=== PATIENT | male | born 1975 | race Caucasian/White ===

== ENCOUNTER 2016-12-23 23:30 | Emergency (ER) | payer OTHER ==
[~2016-12-23] VITALS: Ht 172.7 cm; Wt 80.0 kg
[2016-12-23 23:32] VITALS: Ht 172.7 cm; Wt 80.0 kg
[2016-12-24] MEDS ORDERED: KETOROLAC 60 MG INJ IM STA (01:16)
--- NOTE | 2016-12-24 01:58 | RADRPT ---
PROCEDURE: Thoracic Spine. CLINICAL INDICATION: Pain TECHNIQUE: Three views of the thoracic spine are available for review. COMPARISON: None available FINDINGS: No fracture is identified. There is maintenance of height of the vertebral bodies. Alignment is m aintained. There is no spondylolisthesis. Bone mineralization is within normal limits. Soft tissu es are unremarkable. IMPRESSION: 1. No acute abnormality. RPTAT: HMVK .Jamison Henry MD, MD Date Time Electronically viewed and signed by .Jamison Henry MD, on 12/24/2016 01:58 .K/
--- NOTE | 2016-12-24 02:35 | ERD ---
ER Documentation Chief Complaint Date/Time DATE: 12/24/16 Chief Complaint Back pain HPI The patient is a 41-year-old male who presents to the emergency department with complaint of back pain. The patient reports that his pain initially began approximately one month ago, with onset of left-sided thoracic back pain. The pain is worsened after excessive activity, and is improved at rest and when lying supine. He denies any recent falls, injury or trauma to the back. Denies bowel or bladder disturbances, urinary retention or extremity numbness, paresthesias or weakness. Denies neck pain or neck stiffness. Denies fevers, sweats, chills, nausea or vomiting. Denies any restricted range of motion of the back. Denies any new rashes or lesions to the back. Denies chest pain, palpitations, shortness of breath. Denies recent travel, lower extremity edema, calf swelling or calf tenderness. Denies history of immunocompromised state or IV drug use. He rates his current pain as 2/10, but has not yet taken any medication for pain relief. Denies any other complaints at this time. ROS All systems reviewed and are negative except as per history of present illness. Medications Home Meds Active Scripts Ibuprofen* (Motrin*) 600 Mg Tab, 600 MG PO Q6, #30 TAB Prov:JAK LINDQUIST PA-C 12/24/16 Allergies Allergies: Coded Allergies: No Known Allergy (Unverified , 12/23/16) PMhx/Soc Medical and Surgical Hx: pt denies Medical Hx, pt denies Surgical Hx Hx Alcohol Use: No Hx Substance Use: No Hx Tobacco Use: No Smoking Status: Never smoker Physical Exam Vitals Vital Signs Date Time Temp Pulse Resp B/P Pulse Ox O2 Delivery O2 Flow Rate FiO2 12/24/16 03:04 98.3 76 20 112/77 99 Room Air 12/23/16 23:32 98.3 65 18 126/74 97 Physical Exam GENERAL: Well-developed, well-nourished, in no acute distress HEENT: Head is normocephalic, atraumatic. No scleral pallor or icterus. Pupils equal, round and reactive to light. Extraocular movements intact. Conjunctiva pink. Moist mucous membranes. NECK: Supple. No masses, no tenderness, no lymphadenopathy. Full range of motion. RESPIRATORY: Lungs are clear to auscultation bilaterally. No rales, rhonchi or wheezing. Equal breath sounds. Normal expiratory effort. Symmetric expansion. CARDIOVASCULAR: Regular rate and rhythm. S1 and S2 normal. No murmurs, rubs, or gallops. No chest wall tenderness. No crepitus. GASTROINTESTINAL: Abdomen is soft, nontender, and nondistended. Positive bowel sounds. No pulsatile abdominal masses. FLANK: No CVA tenderness, no mass or swelling. BACK: No midline tenderness. Left-sided paraspinal muscle tenderness. Spine curve normal. No deformities. No step offs. Negative straight leg raise bilaterally. No foot drop. No crepitus. No saddle-region anesthesia. EXTREMITIES: No clubbing, cyanosis, or edema. Normal skin perfusion. Moving all extremities. Muscle tone is normal. No focal swelling or erythema. Distal pulses are palpable, 2+ bilaterally. Capillary refill is less than 2 seconds. 5/ 5 strength upper and lower extremities bilaterally. NEUROLOGIC: The patient is alert, awake, and oriented x 3. No focal neurologic deficits. Cranial nerves are grossly intact. Gait is observed and normal. There is no ataxia. Motor and sensation grossly intact. INTEGUMENT: Skin is clean, dry and intact. No rashes, lesions or petechiae present. Normal turgor. PSYCHIATRIC: Appropriate; Cooperative. Results 24 hrs Current Medications Medications (Trade) Dose Ordered Sig/Maicol Route PRN Reason Start Time Stop Time Status Last Admin Dose Admin Ketorolac Tromethamine (Toradol) 60 mg ONCE STAT IM 12/24/16 01:16 12/24/16 01:17 DC 12/24/16 02:29 Procedures/MDM DIAGNOSTIC TESTS AND INTERPRETATION: PROCEDURE: Thoracic Spine. CLINICAL INDICATION: Pain TECHNIQUE: Three views of the thoracic spine are available for review. COMPARISON: None available FINDINGS:No fracture is identified. There is maintenance of height of the vertebral bodies. Alignment is maintained. There is no spondylolisthesis. Bone mineralization is within normal limits. Soft tissues are unremarkable. IMPRESSION: No acute abnormality. .Jamison Henry MD, Date Time Electronically viewed and signed by .Jamison Henry MD, on 12/24/2016 01:58 MEDICAL DECISION MAKING: This is a 41-year-old male presenting to the Emergency Department with complaint of left thoracic back pain x 1 month. On physical examination the patient had tenderness to palpation noted over the left paraspinal muscles of the thoracic back. He had negative straight leg raises, with no saddle-region anesthesia noted. Vital signs were appropriate. He exhibited no altered mental status, neurologic deficits, saddle anesthesia, bowel or bladder disturbances, incontinence, urinary retention, or lower extremity motor or sensory deficits. The differential diagnosis includes, but is not limited to, cauda equina syndrome, epidural abscess, epidural hematoma, osteomyelitis, vertebral fracture , lumbosacral strain, herniated disc, spinal stenosis, nephrolithiasis, osteoarthritis, sciatica, spondylolisthesis, bursitis, fracture, pyelonephritis , thoracic outlet syndrome, pneumothorax, hemothorax, thoracic/abdominal aortic aneurysm, aortic dissection, herpes zoster, radiculopathy, myelopathy, neoplastic disease. No acute abnormalities were noted on x-ray imaging. After rest and administration of Toradol, the patient reports no new complaints, and decreased pain. Upon my review and interpretation of the patient's presentation, clinical data, and overall ER course, I believe the patient's symptoms are most consistent with back pain, uncertain etiology. I suspect symptoms are musculoskeletal in origin. I doubt cord compression or cauda equina syndrome, as patient is with equal, strong motor in bilateral lower extremities, no bowel/bladder disturbances, incontinence or retention, no saddle-anesthesia. Doubt vertebral fracture, no midline bony tenderness, no history of significant recent trauma. Doubt neoplastic disease, metastases unlikely given no night sweats, systemic symptoms, no risk factors. Doubt epidural abscess, patient is afebrile, with no history of IV drug use and is immunocompetent. Renal/aortic pathology not consistent with patient history or physical examination, no pulsatile abdominal masses, equal pulses bilaterally. Doubt pyelonephritis, no systemic symptoms, no flank pain, no CVA tenderness. Doubt zoster, no vesicular lesions noted. Doubt pneumothorax, patient has equal breath sounds, normal O2 saturation on room air. At this time, the patient is in stable condition and therefore can be discharged home with a prescription for Ibuprofen and strict return precautions for signs of deteriorating or worsening condition. The patient is advised to follow up with his primary care provider within 2-3 days for reevaluation and further management, or return to the ER sooner for any new or worsening symptoms. I shared my medical decision making and plan with the patient at length and in great detail, and the patient verbally understands and agrees with the plan for further observation and care as an outpatient. At the time of discharge, all questions were answered. Departure Diagnosis: Primary Impression: Left-sided thoracic back pain Chronicity: acute Qualified Code: M54.6 - Acute left-sided thoracic back pain Condition: Stable Patient Instructions: Back Pain (Acute Or Chronic), Relieving Back Pain, Thoracic Strain Additional Instructions: Llame al doctor MAANA y paty henrry EVERT PARA DENTRO DE 2-3 CHILEL.Dgale a la secretaria que nosotros le instruimos hacer esta evert.Avise o llame si delgado condicin se empeora antes de la evert. Regresa aqui si peor o no mejor. JAK LINDQUIST PA-C Dec 24, 2016 02:35
[2016-12-24] MEDS ORDERED: NAPR-260 PO (02:36)
[2016-12-24] MEDS ORDERED: IBUP-1542 PO (02:36)
[2016-12-24 03:04] VITALS: BP 112/77; PULSE 76; RESP 20; TEMP 98.3
== END 2016-12-24 03:04 | disposition home or self-care (01) ==
LOC: FTE 23:30
DX: M54.6 Pain in thoracic spine (principal)
CPT/HCPCS: 72072; 96372; J1885; Z7502

== ENCOUNTER 2016-12-27 21:15 | Emergency (ER) | payer OTHER ==
[~2016-12-27] VITALS: Ht 170.2 cm; Wt 78.0 kg
[~2016-12-27 21:15] MED LIST: IBUP-1542 PO; NAPR-260 PO
[2016-12-27 21:20] VITALS: Ht 170.2 cm; Wt 78.0 kg
[2016-12-27] MEDS ORDERED: ONDANSETRON (ODT) 4 MG TAB ODT STA (21:53)
[2016-12-27] MEDS ORDERED: ACETAMINOPHEN 325 MG TAB PO ONE (22:00)
[2016-12-27] MEDS ORDERED: ACET500C5 PO (22:21)
[2016-12-27] MEDS ORDERED: ONDA4TAB14 PO (22:21)
--- NOTE | 2016-12-27 22:43 | ERD ---
ER Documentation Chief Complaint Date/Time DATE: 12/27/16 TIME: 22:40 Chief Complaint VENTURA/VOMITING X2 DAYS. STATED BEING TREATED FOR SHINGLES HPI 41-year-old male comes in with history of headache, nausea vomiting over the last 2 days and is currently being treated for shingles. He reports that he had some back pain in the thoracic region that started about 4 days ago and developed a rash that same evening after being seen, he was seen by his primary care doctor today for the symptoms as well as the rash that presented on Sunday which was 2 days ago and was started on [place] as well as acyclovir. He is to take acyclovir which is 100 mg 5 times a day and was also prescribed [place]. He reports a frontal headache that is throbbing, worse when he leans forward, is nonradiating. He denies any photophobia, denies that this is a worse headache of his life, denies any neck stiffness. The rashes on the left side of the chest that is consistent with shingles, it is burning, and radiates and continues to his back. ROS All systems reviewed and are negative except as per history of present illness. Medications Home Meds Active Scripts Ondansetron (Ondansetron Odt) 4 Mg Tab.rapdis, 4 MG PO Q6H Y for NAUSEA AND/OR VOMITING, #10 TAB Prov:BASIA LAMAS PA-C 12/27/16 Acetaminophen* (Tylophen*) 500 Mg Capsule, 1 CAP PO Q6H Y for PAIN AND OR ELEVATED TEMP, #20 CAP Prov:BASIA LAMAS PA-C 12/27/16 Ibuprofen* (Motrin*) 600 Mg Tab, 600 MG PO Q6, #30 TAB Prov:JAK LINDQUIST PA-C 12/24/16 Allergies Allergies: Coded Allergies: No Known Allergy (Unverified , 12/27/16) PMhx/Soc Medical and Surgical Hx: pt denies Surgical Hx Hx Miscellaneous Medical Probl: Yes (shingles; on treatment. ) Hx Alcohol Use: No Hx Substance Use: No Hx Tobacco Use: No Smoking Status: Never smoker Physical Exam Vitals Vital Signs Date Time Temp Pulse Resp B/P Pulse Ox O2 Delivery O2 Flow Rate FiO2 12/27/16 21:20 99.6 90 18 118/64 97 Physical Exam General: Well-developed, well-nourished. The patient appears in no acute distress. Nontoxic appearing. HEENT: Head is normocephalic, atraumatic. No scleral icterus. Neck: Supple. Nontender. No meningismus Lungs: Clear to auscultation. Normal air movement. Heart: Regular rate and rhythm. S1 and S2 are normal. No murmurs, gallops, or rubs. Abdomen: Soft, nontender, nondistended. Bowel sounds are normoactive Back: Atraumatic Extremities: No clubbing or cyanosis. Normal pulses. Moving extremities x 4. No weakness. Neurologic: Alert and oriented 3. No focal deficits. Speech and gait normal. Skin: Unilateral vesicular rash along the T5 dermatome, it is on the left side just below the nipple goes to his back as well. Results 24 hrs Current Medications Medications (Trade) Dose Ordered Sig/Maicol Route PRN Reason Start Time Stop Time Status Last Admin Dose Admin Acetaminophen (Tylenol Tab) 650 mg ONCE ONCE PO 12/27/16 22:00 12/27/16 22:01 DC 12/27/16 22:31 Ondansetron HCl (Zofran Odt) 4 mg ONCE STAT ODT 12/27/16 21:53 12/27/16 21:54 DC 12/27/16 22:31 Procedures/MDM ED course: He was given Tylenol as well as Zofran for his symptoms. He was reassessed after receiving Tylenol and Zofran and states that he is feeling much better at this time. Medical decision makin-year-old male presents with shingles, patient presents with symptoms of headache and nausea vomiting as well. Differential diagnosis of meningitis versus encephalitis source sepsis was also considered given his presentation of the fever, headache and nausea vomiting however the patient does not have any meningismus, he is nontoxic appearing. His headache does sound to be more migraine versus tension-like as it is frontal, throbbing and worse leaning forward. No photophobia noted, and he is nontoxic appearing. This was discussed with my attending physician, Dr. Villegas agrees that the patient does not warrant any further imaging or workup or hospitalization. He is currently taking acyclovir p.o. and is appropriate to be continued. Departure Diagnosis: Primary Impression: Shingles Additional Impression: Headache Condition: Good Patient Instructions: Shingles (Herpes Zoster) Additional Instructions: Llame al doctor MAANA y paty henrry EVERT PARA DENTRO DE 1-2 CHILEL.Dgale a la secretaria que nosotros le instruimos hacer esta evert.Avise o llame si delgado condicin se empeora antes de la evert. Regresa aqui si peor o no mejor. BASIA LAMAS PA-C Dec 27, 2016 22:43
== END 2016-12-27 23:04 | disposition home or self-care (01) ==
LOC: FTE 21:15
DX: B02.9 Zoster without complications (principal); R11.2 Nausea with vomiting, unspecified
CPT/HCPCS: Z7502; Z7610; 99283

== ENCOUNTER 2018-02-12 21:56 | Emergency (ER) | END 2018-02-12 23:58 | disposition home or self-care (01) ==

== ENCOUNTER 2018-04-07 17:48 | Emergency (ER) | END 2018-04-07 19:02 | disposition home or self-care (01) ==

== ENCOUNTER 2018-07-05 14:11 | Emergency (ER) | payer OTHER ==
[~2018-07-05] VITALS: Wt 77.6 kg
[~2018-07-05 14:11] MED LIST changes: +ACET500C5 PO; +CYCL10TA7 PO; -NAPR-260 PO; +NAPR-985 PO; +ONDA4TAB14 PO; +PHEN177S43 MT; +TRAM50TA2 PO
[2018-07-05 14:14] VITALS: BP 137/62; PULSE 75; RESP 20
[2018-07-05] MEDS ORDERED: ACYC200C2 PO (18:33)
--- NOTE | 2018-07-05 19:21 | ERD ---
ER Documentation Chief Complaint Chief Complaint LEFT HAND THUMB WART [id number] HPI 42-year-old male patient with no significant past medical history presents to ED complaining of left thumb rash that started about 5 months ago. Patient describes it as a burning sensation and painful. Denies any fever, chills, naus ea, vomiting, diarrhea, neck stiffness. Patient reports that he is sexually active, with his , 1 partner. Patient reports that he tried to also remove the vesicles with a nail clipper. Patient reports that he also has formed, new sores on to his middle finger of the left hand. ROS All systems reviewed and are negative except as per history of present illness. Medications Home Meds Active Scripts Acyclovir* (Acyclovir*) 200 Mg Capsule, 200 MG PO QID, #7 CAP Prov:ARTURO REYES PA-C 07/05/18 Tramadol HCl (Tramadol HCl) 50 Mg Tablet, 50 MG PO Q4 PRN for PAIN, #20 TAB Prov:HMIA KEEN MD 04/07/18 Cyclobenzaprine Hcl* (Cyclobenzaprine Hcl*) 10 Mg Tablet, 10 MG PO TID, #15 TAB Prov:GREGORIO IYER PA-C 02/12/18 Naproxen* (Naprosyn*) 500 Mg Tablet, 500 MG PO BID PRN for PAIN AND/OR INFLAMMATION, #30 TAB Prov:GREGORIO IYER PA-C 02/12/18 Phenol* (Chloraseptic* [place]) 177 Ml [place].pump, 2 SPRAY MT Q2H PRN for SORE THROAT, #1 BOTTLE Prov:GREGORIO IYER PA-C 02/12/18 Ondansetron (Ondansetron Odt) 4 Mg Tab.rapdis, 4 MG PO Q6H PRN for NAUSEA AND/OR VOMITING, #10 TAB Prov:BASIA LAMAS PA-C 12/27/16 Acetaminophen* (Tylophen*) 500 Mg Capsule, 1 CAP PO Q6H PRN for PAIN AND OR ELEVATED TEMP, #20 CAP Prov:BASIA LAMAS PA-C 12/27/16 Ibuprofen* (Motrin*) 600 Mg Tab, 600 MG PO Q6, #30 TAB Prov:JAK LINDQUIST PA-C 12/24/16 Allergies Allergies: Coded Allergies: No Known Allergy (Unverified , 12/27/16) PMhx/Soc Medical and Surgical Hx: pt denies Medical Hx, pt denies Surgical Hx Hx Miscellaneous Medical Probl: Yes (shingles; on treatment. ) Hx Alcohol Use: No Hx Substance Use: No Hx Tobacco Use: No Smoking Status: Never smoker FmHx Family History: No diabetes, No coronary disease Physical Exam Vitals Vital Signs Date Temp Pulse Resp B/P (MAP) Pulse Ox O2 O2 Flow FiO2 Time Delivery Rate 07/05/18 98.4 75 20 137/62 98 14:14 (87) Physical Exam Const: [id number], well-nourished. In no acute distress. Head: Atraumatic, normocephalic Eyes: Normal Conjunctiva without injection ENT: Normal external ear, nose and mouth. Neck: Full range of motion. No meningismus. Resp: Clear to auscultation bilaterally. No wheezing, rhonchi, rales, or crackles. No accessory muscle use. No retractions. Cardio: Regular rate and rhythm, no murmurs Skin: No petechiae or rashes Back: No midline tenderness. No CVA tenderness. Ext: No cyanosis, or edema. Cap refill less than 2 seconds. Distal pulses intact bilaterally. Grouped vesicles noted of patient's volar aspect of patient's left thumb. No erythema, edema. No purulent discharge. No fluctuance or induration. Neur: Awake and alert. Normal gait and coordination. Muscle strength 5/5. Sensation intact bilaterally. Psych: Normal Mood and Affect Procedures/MDM 42-year-old male patient with no significant past medical history presents to ED complaining of left hand with vesicles. Patient is afebrile and nontoxic- appearing. Patient is differentials are herpetic bruce. Low suspicion for anaphylaxis, scabies, SJS/TEN, TSS, Lyme's Disease, syphilis, RMSF, shingles, disseminated gonorrhea, chlamydia, DIC, TTP, ITP, erythema multiforme, sepsis, cellulitis, necrotizing fasciitis, gangrene, meningococcemia, allergic contact dermatitis, urticaria, eczema, tinea infection, or other emergent conditions. Discussed this case with supervising physician, Dr. Samuels, who agreed with the management and discharge plan. No sex cleared by PCP. Diagnosis: Herpetic bruce Discharge medications: Acyclovir Follow up with primary care physician in 1-2 days. Instructed patient to return to the ED sooner for any worsening symptoms. Should also keep the vesicles covered till resolved due to risk of transmission. Patient should not rub his eyes. Patient's questions were answered. Patient is hemodynamically stable. Patient understood and agreed with discharge plan. Patient discharged stable. Disclaimer: Inadvertent spelling and grammatical errors are likely due to EHR/dictation software use and do not reflect on the overall quality of patient care. Also, please note that the electronic time recorded on this note does not necessarily reflect the actual time of the patient encounter. Departure Diagnosis: Primary Impression: Herpetic bruce Condition: Stable Patient Instructions: Herpes: Caring for Sores Referrals: [facility] YOU HAVE RECEIVED A MEDICAL SCREENING EXAM AND THE RESULTS INDICATE THAT YOU DO NOT HAVE A CONDITION THAT REQUIRES URGENT TREATMENT IN THE EMERGENCY DEPARTMENT. FURTHER EVALUATION AND TREATMENT OF YOUR CONDITION CAN WAIT UNTIL YOU ARE SEEN IN YOUR DOCTORS OFFICE WITHIN THE NEXT 1-2 DAYS. IT IS YOUR RESPONSIBILITY TO MAKE AN APPOINTMENT FOR FOLOW-UP CARE. IF YOU HAVE A PRIMARY DOCTOR --you should call your primary doctor and schedule an appointment IF YOU DO NOT HAVE A PRIMARY DOCTOR YOU CAN CALL OUR PHYSICIAN REFERRAL HOTLINE AT IF YOU CAN NOT AFFORD TO SEE A PHYSICIAN YOU CAN CHOSE FROM THE FOLLOWING [facility] [address] [facility]. [facility] [address] [facility]. [facility] [address] [facility] [facility] [address] [facility]. [facility] [address] [facility]. [facility]. [address] [facility]. [facility] YOU HAVE RECEIVED A MEDICAL SCREENING EXAM AND THE RESULTS INDICATE THAT YOU DO NOT HAVE A CONDITION THAT REQUIRES URGENT TREATMENT IN THE EMERGENCY DEPARTMENT. FURTHER EVALUATION AND TREATMENT OF YOUR CONDITION CAN WAIT UNTIL YOU ARE SEEN IN YOUR DOCTORS OFFICE WITHIN THE NEXT 1-2 DAYS. IT IS YOUR RESPONSIBILITY TO MAKE AN APPOINTMENT FOR FOLOW-UP CARE. IF YOU HAVE A PRIMARY DOCTOR --you should call your primary doctor and schedule and appointment IF YOU DO NOT HAVE A PRIMARY DOCTOR YOU CAN CALL OUR PHYSICIAN REFERRAL HOTLINE AT . IF YOU CAN NOT AFFORD TO SEE A PHYSICIAN YOU CAN CHOSE FROM THE FOLLOWING [facility] INSTITUTIONS: [facility] [address] [place] [address] [facility] [address] [place], [place] [id number] [place] [address] [address] [place] [address] [facility] URGENT CARE/SPECIALTIES Additional Instructions: Llame al doctor MAANA y paty henrry EVERT PARA DENTRO DE 2-3 CHILEL.Dgale a la secretaria que nosotros le instruimos hacer esta evert.Avise o llame si gutiérrez condicin se empeora antes de la evert. Regresa aqui si peor o no mejor. WOUND CHECK:CONSULTE A GUTIÉRREZ MDICO EN 2 rivero para carlos GUTIÉRREZ HERIDA. ARTURO REYES PA-C Jul 05, 2018 19:21
== END 2018-07-05 18:57 | disposition home or self-care (01) ==
LOC: FTE 14:11
DX: B00.89 Other herpesviral infection (principal)
CPT/HCPCS: 99283

== ENCOUNTER 2018-08-09 15:45 | Emergency (ER) | payer OTHER ==
[~2018-08-09] VITALS: Ht 170.2 cm; Wt 76.7 kg
[~2018-08-09 15:45] MED LIST changes: +ACYC200C2 PO
[2018-08-09 16:02] VITALS: BP 117/57; PULSE 65; RESP 17; Ht 170.2 cm; Wt 76.7 kg
[2018-08-09] MEDS ORDERED: KETOROLAC 30 MG INJ IM STA (18:30)
[2018-08-09] MEDS ORDERED: SULF1TAB31 PO (19:20)
[2018-08-09] MEDS ORDERED: IBUP-1542 PO (19:20)
[2018-08-09] MEDS ORDERED: ACET-141 PO (19:20)
[2018-08-09] MEDS ORDERED: CEPH500C PO (19:20)
--- NOTE | 2018-08-09 19:22 | ERD ---
ER Documentation Chief Complaint Chief Complaint L thumb worsening pain; No new injury/ trauma ROS All systems reviewed and are negative except as per history of present illness. Medications Home Meds Active Scripts Cephalexin* (Cephalexin*) 500 Mg Capsule, 500 MG PO Q8 for skin infection for 5 Days, #15 CAP Prov:HOLLY ROSE DO 08/09/18 Sulfamethoxazole/Trimethoprim* (Bactrim Ds* Tablet) 1 Each Tablet, 1 TAB PO BID for skin infection for 5 Days, #10 TAB Prov:HOLLY ROSE DO 08/09/18 Acetaminophen* (Acetaminophen*) 500 MG Extra Strength Tablet, 500 MG PO Q4H PRN for PAIN AND OR ELEVATED TEMP, #30 TAB Prov:HOLLY ROSE DO 08/09/18 Ibuprofen* (Motrin*) 600 Mg Tab, 600 MG PO Q6H PRN for PAIN AND OR ELEVATED TEMP, #30 TAB Prov:HOLLY ROSE DO 08/09/18 Acyclovir* (Acyclovir*) 200 Mg Capsule, 200 MG PO QID, #7 CAP Prov:ARTURO REYES PA-C 07/05/18 Tramadol HCl (Tramadol HCl) 50 Mg Tablet, 50 MG PO Q4 PRN for PAIN, #20 TAB Prov:HIMA KEEN MD 04/07/18 Cyclobenzaprine Hcl* (Cyclobenzaprine Hcl*) 10 Mg Tablet, 10 MG PO TID, #15 TAB Prov:GREGORIO IYER PA-C 02/12/18 Naproxen* (Naprosyn*) 500 Mg Tablet, 500 MG PO BID PRN for PAIN AND/OR INFLAMMATION, #30 TAB Prov:GREGORIO IYER PA-C 02/12/18 Phenol* (Chloraseptic* [place]) 177 Ml [place].pump, 2 SPRAY MT Q2H PRN for SORE THROAT, #1 BOTTLE Prov:GREGORIO IYER PA-C 02/12/18 Ondansetron (Ondansetron Odt) 4 Mg Tab.rapdis, 4 MG PO Q6H PRN for NAUSEA AND/OR VOMITING, #10 TAB Prov:BASIA LAMAS PA-C 12/27/16 Acetaminophen* (Tylophen*) 500 Mg Capsule, 1 CAP PO Q6H PRN for PAIN AND OR ELEVATED TEMP, #20 CAP Prov:BASIA LAMAS PA-C 12/27/16 Ibuprofen* (Motrin*) 600 Mg Tab, 600 MG PO Q6, #30 TAB Prov:JAK LINDQUIST JACKIE 12/24/16 Allergies Allergies: Coded Allergies: No Known Allergy (Unverified , 12/27/16) PMhx/Soc Medical and Surgical Hx: pt denies Surgical Hx Hx Miscellaneous Medical Probl: Yes (shingles; on treatment. ) Hx Alcohol Use: No Hx Substance Use: No Hx Tobacco Use: No Smoking Status: Never smoker Physical Exam Vitals Vital Signs Date Temp Pulse Resp B/P (MAP) Pulse Ox O2 O2 Flow FiO2 Time Delivery Rate 08/09/18 98.5 65 17 117/57 98 16:02 (77) Physical Exam Const: No acute distress Head: Atraumatic Eyes: Normal Conjunctiva ENT: Normal External Ears, Nose and Mouth. Neck: Full range of motion. No meningismus. Resp: Clear to auscultation bilaterally Cardio: Regular rate and rhythm, no murmurs Abd: Soft, non tender, non distended. Normal bowel sounds Skin: No petechiae or rashes Back: No midline or flank tenderness Ext: No cyanosis, or edema Neur: Awake and alert Psych: Normal Mood and Affect Results 24 hrs Current Medications Medications Dose Sig/Maicol Start Time Status Last (Trade) Ordered Route PRN Stop Time Admin Dose Reason Admin Ketorolac 30 mg ONCE STAT 08/09/18 DC 08/09/18 Tromethamine IM 18:30 18:42 (Toradol) 08/09/18 18:31 Departure Diagnosis: Primary Impression: Pain of finger Laterality: left Qualified Codes: M79.645 - Pain in left finger(s) Additional Impression: Cellulitis Site of cellulitis: extremity Site of cellulitis of extremity: finger Laterality: left Qualified Codes: L03.012 - Cellulitis of left finger Condition: Fair Patient Instructions: Cellulitis Referrals: COMMUNITY CLINICS YOU HAVE RECEIVED A MEDICAL SCREENING EXAM AND THE RESULTS INDICATE THAT YOU DO NOT HAVE A CONDITION THAT REQUIRES URGENT TREATMENT IN THE EMERGENCY DEPARTMENT. FURTHER EVALUATION AND TREATMENT OF YOUR CONDITION CAN WAIT UNTIL YOU ARE SEEN IN YOUR DOCTORS OFFICE WITHIN THE NEXT 1-2 DAYS. IT IS YOUR RESPONSIBILITY TO MAKE AN APPOINTMENT FOR FOLOW-UP CARE. IF YOU HAVE A PRIMARY DOCTOR --you should call your primary doctor and schedule an appointment IF YOU DO NOT HAVE A PRIMARY DOCTOR YOU CAN CALL OUR PHYSICIAN REFERRAL HOTLINE AT IF YOU CAN NOT AFFORD TO SEE A PHYSICIAN YOU CAN CHOSE FROM THE FOLLOWING [facility] [address] [facility] [address] [facility] [address] [facility] [address] [facility] [address] [facility]. [facility]. [address] Additional Instructions: Call your primary care doctor TOMORROW for an appointment during the next 1-2 days.See the doctor sooner or return here if your condition worsens before your appointment time. Llame al doctor MAANA y paty henrry EVERT PARA DENTRO DE 1-2 CHILEL.Dgale a la secretaria que nosotros le instruimos hacer esta evert.Avise o llame si delgado condicin se empeora antes de la evert. Regresa aqui si peor o no mejor. HOLLY ROSE DO Aug 09, 2018 19:22
== END 2018-08-09 19:32 | disposition home or self-care (01) ==
LOC: FTE 15:45
DX: L03.012 Cellulitis of left finger (principal)
CPT/HCPCS: 96372; J1885; Z7502

== ENCOUNTER 2018-12-19 06:46 | Emergency (ER) | payer OTHER ==
[~2018-12-19] VITALS: Ht 167.6 cm; Wt 75.9 kg
[~2018-12-19 06:46] MED LIST changes: +ACET-141 PO; +CEPH500C PO; +FAMO-96 PO; +SULF1TAB31 PO
[2018-12-19 06:51] VITALS: BP 123/83; PULSE 95; RESP 18; Ht 167.6 cm; Wt 75.9 kg
--- NOTE | 2018-12-19 07:28 | ERD ---
ER Documentation Chief Complaint Chief Complaint C/O ABD/EPIGASTRIC PAIN FOR 3 DAYS. NO N/V/D. HPI This is a 43-year-old previously healthy male who is presenting with mild aching bloating epigastric discomfort without any significant pain, no nausea or vomiting, no constipation or diarrhea, beginning 3 days ago after eating salmon. He believes it was well cooked, but he cannot say for sure. The patient reports feeling pretty well at this point, but he is hoping to get something for his bloating discomfort. He denies dysuria or hematuria or urgency or frequency. He denies any black or bloody or tarry stools. He does not endorse any alleviating or exacerbating factors. The patient denies feeling sick recently. The patient denies fever or chills. The patient has had no headache or vision changes. The patient does not endorse neck or back pain. The patient denies lightheadedness or dizziness. The patient has had no chest pain or trouble breathing. The patient has had no focal deficits. The patient has had no weakness or numbness or tingling to the face or extremities. ROS All systems reviewed and are negative except as per history of present illness. Medications Home Meds Active Scripts Cephalexin* (Cephalexin*) 500 Mg Capsule, 500 MG PO Q8 for skin infection for 5 Days, #15 CAP Prov:HOLLY ROSE DO 08/09/18 Sulfamethoxazole/Trimethoprim* (Bactrim Ds* Tablet) 1 Each Tablet, 1 TAB PO BID for skin infection for 5 Days, #10 TAB Prov:HOLLY ROSE DO 08/09/18 Acetaminophen* (Acetaminophen*) 500 MG Extra Strength Tablet, 500 MG PO Q4H PRN for PAIN AND OR ELEVATED TEMP, #30 TAB Prov:HOLLY ROSE DO 08/09/18 Ibuprofen* (Motrin*) 600 Mg Tab, 600 MG PO Q6H PRN for PAIN AND OR ELEVATED TEMP, #30 TAB Prov:HOLLY ROSE DO 08/09/18 Acyclovir* (Acyclovir*) 200 Mg Capsule, 200 MG PO QID, #7 CAP Prov:ARTURO REYES PA-C 07/05/18 Tramadol HCl (Tramadol HCl) 50 Mg Tablet, 50 MG PO Q4 PRN for PAIN, #20 TAB Prov:HIMA KEEN MD 04/07/18 Cyclobenzaprine Hcl* (Cyclobenzaprine Hcl*) 10 Mg Tablet, 10 MG PO TID, #15 TAB Prov:GREGORIO IYER PA-C 02/12/18 Naproxen* (Naprosyn*) 500 Mg Tablet, 500 MG PO BID PRN for PAIN AND/OR IN FLAMMATION, #30 TAB Prov:GREGORIO IYER PA-C 02/12/18 Phenol* (Chloraseptic* [place]) 177 Ml [place].pump, 2 SPRAY MT Q2H PRN for SORE THROAT, #1 BOTTLE Prov:GREGORIO IYER PA-C 02/12/18 Ondansetron (Ondansetron Odt) 4 Mg Tab.rapdis, 4 MG PO Q6H PRN for NAUSEA AND/OR VOMITING, #10 TAB Prov:BASIA LAMAS PA-C 12/27/16 Acetaminophen* (Tylophen*) 500 Mg Capsule, 1 CAP PO Q6H PRN for PAIN AND OR ELEVATED TEMP, #20 CAP Prov:BASIA LAMAS PA-C 12/27/16 Ibuprofen* (Motrin*) 600 Mg Tab, 600 MG PO Q6, #30 TAB Prov:JAK LINDQUIST PA-C 12/24/16 Allergies Allergies: Coded Allergies: No Known Allergy (Unverified , 12/27/16) PMhx/Soc History of Surgery: No Hx Neurological Disorder: No Hx Respiratory Disorders: No Hx Cardiac Disorders: No Hx Psychiatric Problems: No Hx Miscellaneous Medical Probl: Yes (shingles) Hx Alcohol Use: No Hx Substance Use: No Hx Tobacco Use: No FmHx Family History: No diabetes Physical Exam Vitals Vital Signs Date Temp Pulse Resp B/P (MAP) Pulse Ox O2 O2 Flow FiO2 Time Delivery Rate 12/19/18 98.4 95 18 123/83 99 06:51 (96) Physical Exam Const: No acute distress Head: Atraumatic Eyes: Normal Conjunctiva ENT: Normal External Ears, Nose and Mouth. Neck: Full range of motion. No meningismus. Resp: Clear to auscultation bilaterally Cardio: Regular rate and rhythm, no murmurs Abd: Soft, non tender, non distended. Normal bowel sounds Skin: No petechiae or rashes Back: No midline or flank tenderness Ext: No cyanosis, or edema Neur: Awake and alert Psych: Normal Mood and Affect Results 24 hrs Laboratory Tests Test 12/19/18 07:17 Bedside Urine pH (LAB) 7.0 Bedside Urine Protein (LAB) Negative Bedside Urine Glucose (UA) Negative Bedside Urine Ketones (LAB) Negative Bedside Urine Blood Negative Bedside Urine Nitrite (LAB) Negative Bedside Urine Leukocyte Esterase (L Negative Procedures/MDM MDM Previous medical records, if available, were reviewed. The patient presents with mild bloating epigastric abdominal pain. The patient endorses feeling this way since eating seafood 3 days ago. The patient's symptoms are not entirely consistent with gastroenteritis, but GI upset could be related to the food that he ate. The patient does not have any evidence of peritonitis. The patient does not have clinical symptoms concerning for m esenteric ischemia or ischemic colitis. The patient does not have right upper quadrant tenderness, and I have low suspicion for gallstones, cholecystitis or biliary colic. The patient does not have any epigastric pain. I have low suspicion for gastritis, PUD or GERD. The patient does not have left upper quadrant tenderness. I have low suspicion for pancreatitis. The patient does not have any right lower quadrant tenderness, or periumbilical tenderness. I have low suspicion for appendicitis. The patient does not have suprapubic tenderness. I have decreased suspicion for cystitis. The patient does not have any left lower quadrant tenderness, and I have low suspicion for diverticulosis or diverticulitis. The patient does not have any flank tenderness. The patient does not have gross hematuria. I have decreased suspicion for nephrolithiasis or renal colic. The patient does not have any palpable pulsatile mass or severe abdominal pain radiating to the back. I have low suspicion for aortic aneurysm, dissection or rupture. TREATMENT/DISPOSITION The patient was treated with a GI cocktail and Pepcid in the emergency department. DISCHARGE Upon reevaluation of the patient, symptoms have improved. No emergent diagnoses were identified. At this time, I feel that the patient stable for discharge. The patient was instructed to follow-up with a primary care physician in 1-3 days. The patient will be given strict precautions with which to return to the emergency department. Prescriptions: Pepcid The patient's blood pressure was elevated at greater than 120/80 while in the emergency department. The patient was otherwise stable with no evidence of hypertensive urgency or emergency. The patient does not require admission for blood pressure control. I have discussed with the patient the risks of hypertension. I have instructed the patient to return to the ER for any new or worsening symptoms including chest pain, shortness of breath, headache, blurred vision, confusion, nausea, vomiting or LOC. I have advised the patient to follow up with the primary care physician for outpatient monitoring and treatment for hypertension in 1-3 days. DISCLAIMER Inadvertent spelling and grammatical errors are likely due to EHR/dictation software use and do not reflect on the overall quality of patient care. Note that the electronic time recorded on this note does not necessarily reflect the actual time of the patient encounter. Departure Diagnosis: Primary Impression: Abdominal pain Abdominal location: unspecified location Qualified Codes: R10.9 - Unspeci fied abdominal pain Condition: Stable Patient Instructions: Abdominal Pain Additional Instructions: Thank you for for coming to [facility] for your care today. Please ask your nurse or provider if you have questions about your care today and do not leave until all your questions have been answered. Please use any medications given as directed and follow-up with your doctor (or the doctor you were referred to) in the next 1-3 days. If you do not have a primary care doctor you may follow up at the [facility] or [facility] clinic (listed below). You may also use motrin and tylenol as needed for fever and/or pain unless instructed otherwise by your provider or nurse. Indications for more urgent follow-up have been discussed, but you may return to the Emergency Department at ANY time for any worrisome or worsening symptoms. If you have abdominal pain, please know that no test or exam you received is perfect and you should follow up within 8 hours for continued pain. If you had any imaging studies today, such as an X-Ray or CT Scan, these studies will be reviewed later by a radiologist. You will be called if there are important findings that were not identified today, so make sure the contact information you provided at registration is correct. If you received any narcotic pain control medicine today, such as Vicodin, Morphine or Dilaudid, your coordination and judgment may be affected for a number of hours. Please do not drive or operate heavy machinery, and you may want someone to assist you at home. If you were given a prescription for narcotic medication, be aware that it is very addictive- use sparingly and only if necessary. PLEASE SEEK FURTHER EVALUATION AND MANAGEMENT AT YOUR DOCTORS OFFICE WITHIN THE NEXT 1-3 DAYS. IT IS YOUR RESPONSIBILITY TO MAKE AN APPOINTMENT FOR FOLOW-UP CARE. IF YOU HAVE A PRIMARY DOCTOR, PLEASE CALL THEIR OFFICE TO SCHEDULE AN APPOINTMENT FOR FOLLOW UP. IF YOU DO NOT HAVE A PRIMARY DOCTOR YOU CAN CALL OUR PHYSICIAN REFERRAL HOTLINE AT IF YOU CAN NOT AFFORD TO SEE A PHYSICIAN YOU CAN CHOSE FROM THE FOLLOWING [facility] CLINICS: [facility] [address] [facility] [address] [employer] [facility] [address] [facility] [address] [facility] [address] [facility]. [facility]. [address] JAYCE BOUCHER MD Dec 19, 2018 07:28
[2018-12-19] MEDS ORDERED: LIDOCAINE/MYLANTA 40 ML BTL PO ONE (07:30)
[2018-12-19] MEDS ORDERED: FAMOTIDINE 20 MG TAB PO ONE (07:30)
== END 2018-12-19 07:49 | disposition home or self-care (01) ==
LOC: E/R 06:46
DX: R10.13 Epigastric pain (principal)
CPT/HCPCS: 81003; Z7502; Z7610; 99282